=== PATIENT | female | born 1950 | race Caucasian/White ===

== ENCOUNTER 2018-02-23 15:56 | Observation (INO) | payer MEDICARE ==
[~2018-02-23] VITALS: Ht 154.9 cm; Wt 69.2 kg
[2018-02-23 16:29] LABS: BASOPHILS # (AUTO) 0.03 x10^3/uL (0-0.1); BASOPHILS % (AUTO) 1 % (0-1); EOSINOPHILS # (AUTO) 0.12 x10^3/uL (0-0.4); EOSINOPHILS % (AUTO) 2 % (1-7); LYMPHOCYTES # (AUTO) 2.84 x10^3/uL (1-3.4); LYMPHOCYTES % (AUTO) 41 % (22-44); MD NO; MEAN CORPUSCULAR HEMOGLOBIN 27.4 pg (27.0-34.8); MEAN CORPUSCULAR HGB CONC 32.6 g/dL (32.4-35.8); MEAN PLATELET VOLUME 10.6 fL (7.4-10.4); MONOCYTES # (AUTO) 0.33 x10^3/uL (0.2-0.8); MONOCYTES % (AUTO) 5 % (2-9); NEUTROPHILS # (AUTO) 3.58 x10^3/uL (1.8-6.8); NEUTROPHILS % (AUTO) 52 % (42-75); PLATELET COUNT 308 x10^3/uL (130-400); RED CELL DISTRIBUTION WIDTH 15.8 % (9.6-15.2)
[2018-02-23] MEDS ORDERED: ONDANSETRON 2MG/ML, 2ML ONE (16:29)
[2018-02-23] MEDS ORDERED: HYDROmorphone 2 MG/ML, 1ML ONE ×2 (16:29→22:14)
[2018-02-23] MEDS ORDERED: SODIUM CHLORIDE FLUSH 10ML SYR IVF ONE ×2 (16:30)
[2018-02-23] MEDS ORDERED: HYDROmorphone 2 MG/ML, 1ML IVPush PRN (16:30)
[2018-02-23] MEDS ORDERED: SODIUM CHLORIDE 0.9% 1,000ML IVBOLUS ONE (16:30)
[2018-02-23] MEDS ORDERED: MORPHINE SULFATE 4 MG/ML, 1ML IVPush PRN ×2 (16:30→21:00)
[2018-02-23] MEDS ORDERED: ONDANSETRON 2MG/ML, 2ML IVPush ONE ×2 (16:30)
[2018-02-23 16:34] LABS: ALANINE AMINOTRANSFERASE 48 U/L (12-78); ALBUMIN 3.6 g/dL (3.4-5.0); ANION GAP 6 mmol/L (5-15); CALCIUM 8.9 mg/dL (8.5-10.1); CHLORIDE 112 mmol/L (98-107); CREATININE 0.85 mg/dL (0.55-1.02)
[2018-02-23 16:37] LABS: ALKALINE PHOSPHATASE 169 U/L (45-117); BILIRUBIN,TOTAL 0.3 mg/dL (0.2-1.0); TOTAL PROTEIN 8.1 g/dL (6.4-8.2)
[2018-02-23 17:01] LABS: MICROSCOPIC INDICATED
[2018-02-23 17:13] LABS: CULTURE INDICATED? YES
[2018-02-23] MEDS ORDERED: GABA400C PO (17:21)
[2018-02-23] MEDS ORDERED: soma (17:21)
[2018-02-23] MEDS ORDERED: TRAM50TA2 PO (17:21)
[2018-02-23] MEDS ORDERED: CHOL500045 PO (17:21)
[2018-02-23] MEDS ORDERED: VENL150C PO (17:21)
[2018-02-23] MEDS ORDERED: LEVO112T4 PO (17:21)
[2018-02-23] MEDS ORDERED: HYDR200T72 PO (17:21)
[2018-02-23] MEDS ORDERED: BUPIVACAINE/PF-EPI 0.5% 1:200K ONE (19:38)
[2018-02-23] MEDS ORDERED: FENTANYL PF 250 MCG/5ML ONE (20:22)
[2018-02-23] MEDS ORDERED: MIDAZOLAM 1 MG/ML, 2ML ONE ×2 (20:22→22:45)
[2018-02-23] MEDS ORDERED: SUCCINYLCHOLINE 20 MG/ML, 10ML ONE (20:30)
[2018-02-23] MEDS ORDERED: ROCURONIUM 10MG/ML,5ML ONE (20:30)
[2018-02-23] MEDS ORDERED: BUPIVACAINE/PF-EPI 0.5% 1:200K INFIL ONE (20:59)
[2018-02-23] MEDS ORDERED: PROMETHAZINE 12.5 MG SUPP PR PRN (21:00)
[2018-02-23] MEDS ORDERED: PROMETHAZINE 25 MG/ML, 1ML IV PRN (21:00)
[2018-02-23] MEDS ORDERED: ONDANSETRON ODT 8 MG PO PRN (21:00)
[2018-02-23] MEDS ORDERED: OXYcodone 5 MG/5 ML ORAL.SOL UDC PO PRN (21:00)
[2018-02-23] MEDS ORDERED: MIDAZOLAM 1 MG/ML, 2ML IV PRN (21:00)
[2018-02-23] MEDS ORDERED: DIAZEPAM 5 MG/ML, 2ML IVPush PRN (21:00)
[2018-02-23] MEDS ORDERED: ALBUTEROL SULFATE 2.5 MG/3 ML NPPB PRN (21:00)
[2018-02-23] MEDS ORDERED: HALOPERIDOL 5 MG/ML IV PRN (21:00)
[2018-02-23] MEDS ORDERED: LABETALOL 5MG/ML, 20ML IV PRN (21:00)
[2018-02-23] MEDS ORDERED: hydrALAzine 20 MG/ML, 1ML IV PRN (21:00)
[2018-02-23] MEDS ORDERED: ACETAMINOPHEN 325 MG TABLET PO PRN (21:00)
[2018-02-23] MEDS ORDERED: EPHEDRINE 50 MG/ML, 1ML IVPush PRN (21:00)
[2018-02-23] MEDS ORDERED: ONDANSETRON 2MG/ML, 2ML IV PRN (21:00)
[2018-02-23] MEDS ORDERED: MEPERIDINE/PF 25MG/0.5ML IVPush PRN (21:00)
[2018-02-23] MEDS ORDERED: GLYCOPYRROLATE 0.4 MG/2 ML, 2ML ONE (21:34)
[2018-02-23] MEDS ORDERED: KETOROLAC 30 MG/1 ML ONE (21:34)
[2018-02-23] MEDS ORDERED: NEOSTIGMINE 1 MG/ML, 10ML ONE (21:34)
[2018-02-23] MEDS ORDERED: FENTANYL PF 100 MCG/2ML ONE (22:05)
[2018-02-23] MEDS: FENTANYL PF 100 MCG/2ML IV PRN ×2 (22:05→22:40)
[2018-02-23] MEDS ORDERED: OXYcodone 5 MG/5 ML ORAL.SOL UDC ONE (22:05)
[2018-02-23] MEDS: HYDROmorphone 2 MG/ML, 1ML IVPush PRN ×2 (22:17→22:28)
[2018-02-23] MEDS ORDERED: ONDANSETRON 2MG/ML, 2ML IVPush PRN (22:30)
[2018-02-23] MEDS ORDERED: PROMETHAZINE 25 MG/ML, 1ML IM PRN (22:30)
[2018-02-23] MEDS ORDERED: morphine SULFATE 10 MG/ML, 1ML IVPush PRN (22:30)
[2018-02-24] MEDS ORDERED: ONDANSETRON 2MG/ML, 2ML ONE
[2018-02-24] MEDS ORDERED: PROPOFOL 10 MG/ML, 20ML ONE
[2018-02-24] MEDS ORDERED: DEXAMETHASONE 4 MG/ML, 1ML ONE
[2018-02-24] MEDS ORDERED: EPHEDRINE 50 MG/ML, 1ML ONE
[2018-02-24] MEDS ORDERED: CEFOTETAN PMX 1GM/50ML 50 ML IVPB SCH
[2018-02-24] MEDS ORDERED: CEFOTETAN 1 GM ONE
[2018-02-24] MEDS: OXYcodone/APAP 7.5/325MG TABLET PO PRN ×2 (01:20→05:16)
[2018-02-24] MEDS: D5%-0.45NACL+KCL 20MEQ 1,000 ML IV SCH ×2 (02:22→11:52)
[2018-02-24 04:09] VITALS: BP 100/60
[2018-02-24 05:11] LABS: BASOPHILS # (AUTO) 0.01 x10^3/uL (0-0.1); BASOPHILS % (AUTO) 0 % (0-1); EOSINOPHILS % (AUTO) 0 % (1-7); LYMPHOCYTES # (AUTO) 0.79 x10^3/uL (1-3.4); LYMPHOCYTES % (AUTO) 7 % (22-44); MD NO; MEAN CORPUSCULAR HEMOGLOBIN 27.5 pg (27.0-34.8); MEAN CORPUSCULAR HGB CONC 33.1 g/dL (32.4-35.8); MEAN CORPUSCULAR VOLUME 83.3 fL (80-100); MEAN PLATELET VOLUME 10.8 fL (7.4-10.4); MONOCYTES # (AUTO) 0.15 x10^3/uL (0.2-0.8); MONOCYTES % (AUTO) 1 % (2-9); NEUTROPHILS # (AUTO) 10.52 x10^3/uL (1.8-6.8); NEUTROPHILS % (AUTO) 92 % (42-75); PLATELET COUNT 230 x10^3/uL (130-400); RED BLOOD COUNT 4.12 x10^6/uL (3.82-5.3); RED CELL DISTRIBUTION WIDTH 15.8 % (9.6-15.2)
[2018-02-24 07:06] VITALS: BP 99/61
[2018-02-24 12:47] VITALS: BP 96/58
[2018-02-24 13:32] VITALS: BP 128/71
== END 2018-02-24 16:41 | disposition home or self-care (01) ==
LOC: ED 17:15 → 4NOR 23:30 → ED 02-24 → DCLOUNGE 02-24 16:25
PROVIDERS: ADMIT Surgery; ATTEND Surgery
DX: K80.10 Calculus of gallbladder with chronic cholecystitis without obstruction (principal); E03.9 Hypothyroidism, unspecified; G89.29 Other chronic pain; K66.0 Peritoneal adhesions (postprocedural) (postinfection); K82.8 Other specified diseases of gallbladder
CPT/HCPCS: 36415; 47562; 76700; 80053; 81001; 83605; 83690; 85025; 87086; 88304; 96365; 96372; 96375; 96376; 99284; G0378; J0330; J1100; J1170; J1885; J2250; J2405; J2550; J2704; J2710; J3010; J3480; J3490; J7030

== ENCOUNTER 2018-03-05 11:31 | Inpatient (IN) | payer MEDICARE ==
[~2018-03-05] VITALS: Ht 154.9 cm; Wt 66.0 kg
[~2018-03-05 11:31] MED LIST: CHOL500045 PO; GABA400C PO; HYDR200T72 PO; LEVO112T4 PO; TRAM50TA2 PO; VENL150C PO; soma
[2018-03-05 12:09] LABS: BASOPHILS # (AUTO) 0.06 x10^3/uL (0-0.1); BASOPHILS % (AUTO) 1 % (0-1); EOSINOPHILS # (AUTO) 0.05 x10^3/uL (0-0.4); EOSINOPHILS % (AUTO) 0 % (1-7); LYMPHOCYTES # (AUTO) 1.75 x10^3/uL (1-3.4); LYMPHOCYTES % (AUTO) 15 % (22-44); MD NO; MEAN CORPUSCULAR HEMOGLOBIN 27.7 pg (27.0-34.8); MEAN CORPUSCULAR HGB CONC 33.9 g/dL (32.4-35.8); MEAN CORPUSCULAR VOLUME 81.9 fL (80-100); MEAN PLATELET VOLUME 9.4 fL (7.4-10.4); MONOCYTES # (AUTO) 0.39 x10^3/uL (0.2-0.8); MONOCYTES % (AUTO) 3 % (2-9); NEUTROPHILS # (AUTO) 9.69 x10^3/uL (1.8-6.8); NEUTROPHILS % (AUTO) 81 % (42-75); PLATELET COUNT 465 x10^3/uL (130-400); RED BLOOD COUNT 4.44 x10^6/uL (3.82-5.3); RED CELL DISTRIBUTION WIDTH 15.8 % (9.6-15.2)
[2018-03-05 12:20] LABS: ALANINE AMINOTRANSFERASE 23 U/L (12-78); ALBUMIN 2.6 g/dL (3.4-5.0); ANION GAP 10 mmol/L (5-15); CALCIUM 8.5 mg/dL (8.5-10.1); CHLORIDE 103 mmol/L (98-107); CREATININE 0.98 mg/dL (0.55-1.02)
[2018-03-05 12:22] LABS: ALKALINE PHOSPHATASE 280 U/L (45-117); BILIRUBIN,TOTAL 1.4 mg/dL (0.2-1.0); TOTAL PROTEIN 7.8 g/dL (6.4-8.2)
[2018-03-05] MEDS ORDERED: LORazepam 2 MG/ML, 1ML ONE (12:56)
[2018-03-05] MEDS ORDERED: LORazepam 2 MG/ML, 1ML IVPush ONE (13:00)
[2018-03-05] MEDS ORDERED: OMNIPAQUE 350 MG/ML, 100ML BOTTLE ONE (14:36)
[2018-03-05] MEDS ORDERED: LIDOCAINE-MPF 1%, 5ML ONE ×3 (15:12→16:08)
[2018-03-05] MEDS ORDERED: FENTANYL PF 100 MCG/2ML ONE (15:15)
[2018-03-05] MEDS ORDERED: NALOXONE 1 MG/ML, 2ML ONE (15:15)
[2018-03-05] MEDS ORDERED: DIPHENHYDRAMINE 25 MG CAPSULE PO PRN (15:30)
[2018-03-05] MEDS ORDERED: PHARMACY MAY ADJ FOR RENAL FX MC SCH (15:30)
[2018-03-05] MEDS ORDERED: morphine SULFATE 10 MG/ML, 1ML IVPush ONE (15:30)
[2018-03-05] MEDS ORDERED: ACETAMINOPHEN 325 MG TABLET PO PRN (15:30)
[2018-03-05] MEDS ORDERED: DOCUSATE 100 MG CAPSULE PO PRN (15:30)
[2018-03-05] MEDS ORDERED: MORPHINE SULFATE 4 MG/ML, 1ML ONE (15:31)
[2018-03-05] MEDS: MORPHINE SULFATE 4 MG/ML, 1ML IV PRN (16:34)
[2018-03-05 17:05] VITALS: BP 115/76
[2018-03-05] MEDS: SODIUM CHLORIDE 0.9% 1,000 ML IV SCH (17:27)
[2018-03-05] MEDS: CEFEPIME 2 GM in DEXTROSE 5% 100 ML IV SCH (17:52)
[2018-03-05 19:06] VITALS: BP 120/72
[2018-03-05] MEDS: METRONIDAZOLE PMX 500MG/100ML 100 ML IV SCH (19:55)
[2018-03-05] MEDS: GABAPENTIN 400 MG CAPSULE PO SCH (23:18)
[2018-03-06] MEDS: MORPHINE SULFATE 4 MG/ML, 1ML IV PRN ×3 (00:26→12:41)
[2018-03-06 00:31] VITALS: BP 106/58
[2018-03-06] MEDS: CEFEPIME 2 GM in DEXTROSE 5% 100 ML IV SCH ×3 (02:07→18:33)
[2018-03-06] MEDS: METRONIDAZOLE PMX 500MG/100ML 100 ML IV SCH ×4 (02:44→23:48)
[2018-03-06] MEDS: SODIUM CHLORIDE 0.9% 1,000 ML IV SCH ×3 (04:40→17:33)
[2018-03-06] MEDS: LEVOTHYROXINE 112 MCG TABLET PO SCH (05:23)
[2018-03-06 05:55] LABS: BASOPHILS # (AUTO) 0.04 x10^3/uL (0-0.1); BASOPHILS % (AUTO) 0 % (0-1); EOSINOPHILS # (AUTO) 0.23 x10^3/uL (0-0.4); EOSINOPHILS % (AUTO) 3 % (1-7); LYMPHOCYTES % (AUTO) 22 % (22-44); MD NO; MEAN CORPUSCULAR HEMOGLOBIN 27.7 pg (27.0-34.8); MEAN CORPUSCULAR HGB CONC 33.6 g/dL (32.4-35.8); MEAN CORPUSCULAR VOLUME 82.6 fL (80-100); MEAN PLATELET VOLUME 9.4 fL (7.4-10.4); MONOCYTES # (AUTO) 0.54 x10^3/uL (0.2-0.8); MONOCYTES % (AUTO) 7 % (2-9); NEUTROPHILS # (AUTO) 5.53 x10^3/uL (1.8-6.8); NEUTROPHILS % (AUTO) 68 % (42-75); PLATELET COUNT 400 x10^3/uL (130-400); RED BLOOD COUNT 3.73 x10^6/uL (3.82-5.3); RED CELL DISTRIBUTION WIDTH 15.8 % (9.6-15.2)
[2018-03-06 06:07] LABS: ALANINE AMINOTRANSFERASE 18 U/L (12-78); ALBUMIN 1.9 g/dL (3.4-5.0); ANION GAP 10 mmol/L (5-15); CALCIUM 8.1 mg/dL (8.5-10.1); CHLORIDE 107 mmol/L (98-107); CREATININE 0.77 mg/dL (0.55-1.02)
[2018-03-06 06:09] LABS: ALKALINE PHOSPHATASE 226 U/L (45-117)
[2018-03-06] MEDS: VENLAFAXINE 75MG TABLET PO SCH (09:00)
[2018-03-06] MEDS: GABAPENTIN 400 MG CAPSULE PO SCH ×2 (09:00→21:29)
[2018-03-06] MEDS: CHOLECALCIFEROL 5,000u TAB PO SCH (09:00)
[2018-03-06 09:01] VITALS: BP 118/70
[2018-03-06] MEDS ORDERED: FENTANYL PF 100 MCG/2ML ONE ×2 (14:14→14:32)
[2018-03-06] MEDS ORDERED: LIDOCAINE 4%, 4 ML SYR/CANN TP ONE (14:16)
[2018-03-06] MEDS ORDERED: PHENYLEPHRINE 10 MG/ML ONE (14:16)
[2018-03-06] MEDS ORDERED: DEXAMETHASONE 4 MG/ML, 1ML ONE (15:35)
[2018-03-06] MEDS ORDERED: CEFAZOLIN 1,000 MG ONE (15:35)
[2018-03-06] MEDS ORDERED: ROCURONIUM 10MG/ML,5ML ONE (15:35)
[2018-03-06] MEDS ORDERED: ONDANSETRON 2MG/ML, 2ML ONE (15:35)
[2018-03-06] MEDS ORDERED: SUCCINYLCHOLINE 20 MG/ML, 10ML ONE (15:35)
[2018-03-06] MEDS ORDERED: GLYCOPYRROLATE 0.2MG/1ML, 5ML ONE (15:35)
[2018-03-06] MEDS ORDERED: NEOSTIGMINE 1 MG/ML, 10ML ONE (15:35)
[2018-03-06] MEDS ORDERED: PROPOFOL 10 MG/ML, 20ML ONE (15:35)
[2018-03-06] MEDS ORDERED: INDOMETHACIN 50 MG SUPP.RECT ONE (15:47)
[2018-03-06] MEDS ORDERED: OXYcodone 5 MG/5 ML ORAL.SOL UDC PO PRN (16:00)
[2018-03-06] MEDS ORDERED: ONDANSETRON ODT 8 MG PO PRN (16:00)
[2018-03-06] MEDS ORDERED: ACETAMINOPHEN 325 MG TABLET PO PRN (16:00)
[2018-03-06] MEDS ORDERED: MEPERIDINE/PF 25MG/0.5ML IVPush PRN (16:00)
[2018-03-06] MEDS ORDERED: DIAZEPAM 5 MG/ML, 2ML IVPush PRN (16:00)
[2018-03-06] MEDS ORDERED: PROMETHAZINE 25 MG/ML, 1ML IV PRN (16:00)
[2018-03-06] MEDS ORDERED: ONDANSETRON 2MG/ML, 2ML IV PRN (16:00)
[2018-03-06] MEDS ORDERED: HYDROmorphone 2 MG/ML, 1ML IVPush PRN (16:00)
[2018-03-06] MEDS ORDERED: INDOMETHACIN 50 MG SUPP.RECT PR ONE (16:00)
[2018-03-06] MEDS ORDERED: FENTANYL PF 100 MCG/2ML IV PRN (16:00)
[2018-03-06] MEDS ORDERED: LACTATED RINGERS 1,000 ML IVBOLUS ONE (16:30)
[2018-03-06] MEDS: LACTATED RINGERS 1,000 ML IV SCH (17:50)
[2018-03-06 19:23] VITALS: BP 112/51
[2018-03-06] MEDS: ONDANSETRON 2MG/ML, 2ML IV PRN (22:32)
[2018-03-07 00:03] VITALS: BP 102/64
[2018-03-07] MEDS: SODIUM CHLORIDE 0.9% 1,000 ML IV SCH ×4 (00:20→20:20)
[2018-03-07] MEDS: CEFEPIME 2 GM in DEXTROSE 5% 100 ML IV SCH ×3 (02:45→17:55)
[2018-03-07 04:12] VITALS: BP 108/65
[2018-03-07] MEDS: ONDANSETRON 2MG/ML, 2ML IV PRN ×3 (04:45→16:55)
[2018-03-07] MEDS: LEVOTHYROXINE 112 MCG TABLET PO SCH (04:45)
[2018-03-07] MEDS: METRONIDAZOLE PMX 500MG/100ML 100 ML IV SCH ×4 (04:51→23:46)
[2018-03-07] MEDS: LACTATED RINGERS 1,000 ML IV SCH ×2 (08:00→21:09)
[2018-03-07] MEDS: CHOLECALCIFEROL 5,000u TAB PO SCH (08:12)
[2018-03-07] MEDS: GABAPENTIN 400 MG CAPSULE PO SCH ×2 (08:12→22:44)
[2018-03-07] MEDS: VENLAFAXINE 75MG TABLET PO SCH (08:12)
[2018-03-07 09:01] VITALS: BP 112/64
[2018-03-07] MEDS: MORPHINE SULFATE 4 MG/ML, 1ML IV PRN ×2 (13:25→22:44)
[2018-03-07 14:22] VITALS: BP 106/62
[2018-03-07 19:12] VITALS: BP 103/58
[2018-03-08] MEDS: ONDANSETRON 2MG/ML, 2ML IV PRN ×2 (00:02→22:22)
[2018-03-08 00:45] VITALS: BP 109/66
[2018-03-08] MEDS: SODIUM CHLORIDE 0.9% 1,000 ML IV SCH ×4 (03:00→23:00)
[2018-03-08] MEDS: CEFEPIME 2 GM in DEXTROSE 5% 100 ML IV SCH (04:20)
[2018-03-08 05:21] LABS: BASOPHILS # (AUTO) 0.04 x10^3/uL (0-0.1); BASOPHILS % (AUTO) 1 % (0-1); EOSINOPHILS # (AUTO) 0.34 x10^3/uL (0-0.4); EOSINOPHILS % (AUTO) 4 % (1-7); LYMPHOCYTES # (AUTO) 1.65 x10^3/uL (1-3.4); LYMPHOCYTES % (AUTO) 20 % (22-44); MD NO; MEAN CORPUSCULAR HEMOGLOBIN 26.9 pg (27.0-34.8); MEAN CORPUSCULAR HGB CONC 32.3 g/dL (32.4-35.8); MEAN CORPUSCULAR VOLUME 83.4 fL (80-100); MEAN PLATELET VOLUME 9.2 fL (7.4-10.4); MONOCYTES # (AUTO) 0.37 x10^3/uL (0.2-0.8); MONOCYTES % (AUTO) 5 % (2-9); NEUTROPHILS # (AUTO) 5.81 x10^3/uL (1.8-6.8); NEUTROPHILS % (AUTO) 71 % (42-75); PLATELET COUNT 471 x10^3/uL (130-400); RED BLOOD COUNT 3.87 x10^6/uL (3.82-5.3); RED CELL DISTRIBUTION WIDTH 16.3 % (9.6-15.2)
[2018-03-08 05:27] LABS: ALBUMIN 1.8 g/dL (3.4-5.0); BILIRUBIN, DIRECT 0.5 mg/dL (0.1-0.2)
[2018-03-08 05:30] LABS: BILIRUBIN,INDIRECT 0.4 mg/dL (0.0-2.0); BILIRUBIN,TOTAL 0.9 mg/dL (0.2-1.0); TOTAL PROTEIN 5.6 g/dL (6.4-8.2)
[2018-03-08] MEDS ORDERED: LEVOTHYROXINE 25 MCG TABLET ONE (06:00)
[2018-03-08] MEDS ORDERED: LEVOTHYROXINE 100 MCG TABLET ONE (06:00)
[2018-03-08] MEDS: LEVOTHYROXINE 112 MCG TABLET PO SCH (06:08)
[2018-03-08] MEDS: METRONIDAZOLE PMX 500MG/100ML 100 ML IV SCH (06:08)
[2018-03-08 06:56] VITALS: BP 126/70
[2018-03-08] MEDS: HYDROcodone/APAP 5/325 TABLET PO PRN (10:35)
[2018-03-08] MEDS: AMOXICILLIN/CLAV 875-125MG TABLET PO SCH ×2 (10:35→21:33)
[2018-03-08] MEDS: GABAPENTIN 400 MG CAPSULE PO SCH ×2 (10:35→21:33)
[2018-03-08] MEDS: LACTATED RINGERS 1,000 ML IV SCH ×2 (10:35→23:00)
[2018-03-08] MEDS: CHOLECALCIFEROL 5,000u TAB PO SCH (10:35)
[2018-03-08] MEDS: VENLAFAXINE 75MG TABLET PO SCH (10:35)
[2018-03-08 13:13] VITALS: BP 102/67
[2018-03-08 19:00] VITALS: BP 97/59
[2018-03-09 03:16] VITALS: BP 118/76
[2018-03-09] MEDS: SODIUM CHLORIDE 0.9% 1,000 ML IV SCH (03:24)
[2018-03-09] MEDS: LEVOTHYROXINE 112 MCG TABLET PO SCH (05:13)
[2018-03-09 07:25] VITALS: BP 121/72
[2018-03-09] MEDS: HYDROcodone/APAP 5/325 TABLET PO PRN (08:16)
[2018-03-09] MEDS: AMOXICILLIN/CLAV 875-125MG TABLET PO SCH ×2 (08:16→21:08)
[2018-03-09] MEDS: VENLAFAXINE 75MG TABLET PO SCH (08:16)
[2018-03-09] MEDS: GABAPENTIN 400 MG CAPSULE PO SCH ×2 (08:17→21:08)
[2018-03-09] MEDS: CHOLECALCIFEROL 5,000u TAB PO SCH (08:17)
[2018-03-09] MEDS: MORPHINE SULFATE 4 MG/ML, 1ML IV PRN (11:57)
[2018-03-09] MEDS: D5%-0.9% NACL+KCL 20MEQ 1,000 ML IV SCH (12:36)
[2018-03-09] MEDS ORDERED: BISACODYL 10 MG SUPP PR PRN (13:00)
[2018-03-09 13:04] VITALS: BP 109/58
[2018-03-09 19:16] VITALS: BP 95/58
[2018-03-10 01:41] VITALS: BP 109/69
[2018-03-10] MEDS: D5%-0.9% NACL+KCL 20MEQ 1,000 ML IV SCH (02:36)
[2018-03-10 05:40] LABS: BASOPHILS # (AUTO) 0.01 x10^3/uL (0-0.1); BASOPHILS % (AUTO) 0 % (0-1); EOSINOPHILS # (AUTO) 0.25 x10^3/uL (0-0.4); EOSINOPHILS % (AUTO) 3 % (1-7); LYMPHOCYTES # (AUTO) 2.53 x10^3/uL (1-3.4); LYMPHOCYTES % (AUTO) 32 % (22-44); MD NO; MEAN CORPUSCULAR HEMOGLOBIN 27.3 pg (27.0-34.8); MEAN CORPUSCULAR HGB CONC 32.3 g/dL (32.4-35.8); MEAN CORPUSCULAR VOLUME 84.5 fL (80-100); MEAN PLATELET VOLUME 9.2 fL (7.4-10.4); MONOCYTES # (AUTO) 0.52 x10^3/uL (0.2-0.8); MONOCYTES % (AUTO) 7 % (2-9); NEUTROPHILS # (AUTO) 4.62 x10^3/uL (1.8-6.8); NEUTROPHILS % (AUTO) 58 % (42-75); PLATELET COUNT 486 x10^3/uL (130-400); RED CELL DISTRIBUTION WIDTH 16.5 % (9.6-15.2)
[2018-03-10 05:49] LABS: CHLORIDE 112 mmol/L (98-107)
[2018-03-10] MEDS: LEVOTHYROXINE 112 MCG TABLET PO SCH (05:59)
[2018-03-10 06:00] LABS: ALANINE AMINOTRANSFERASE 18 U/L (12-78); ALBUMIN 1.9 g/dL (3.4-5.0); ALKALINE PHOSPHATASE 186 U/L (45-117); ANION GAP 7 mmol/L (5-15); BILIRUBIN,TOTAL 0.7 mg/dL (0.2-1.0); CALCIUM 7.9 mg/dL (8.5-10.1); CREATININE 0.55 mg/dL (0.55-1.02); TOTAL PROTEIN 5.7 g/dL (6.4-8.2)
[2018-03-10 07:13] VITALS: BP 115/68
[2018-03-10] MEDS: GABAPENTIN 400 MG CAPSULE PO SCH (07:33)
[2018-03-10] MEDS: VENLAFAXINE 75MG TABLET PO SCH (07:33)
[2018-03-10] MEDS: AMOXICILLIN/CLAV 875-125MG TABLET PO SCH (07:33)
[2018-03-10] MEDS: CHOLECALCIFEROL 5,000u TAB PO SCH (07:34)
[2018-03-10] MEDS ORDERED: AMOX1TAB64 PO (11:13)
[2018-03-10] MEDS ORDERED: ONDA4TAB12 PO (11:16)
[2018-03-10 12:29] VITALS: BP 137/85
== END 2018-03-10 13:30 | disposition home or self-care (01) | DRG 393 ==
LOC: ED 12:07 → EDIP 15:04 → 4NOR 16:52 → DCLOUNGE 03-10 13:00
PROVIDERS: ADMIT Surgery; ATTEND Surgery
PROC: 0W9G30Z Drainage of Peritoneal Cavity with Drainage Device, Percutaneous Approach (ICD-10-PCS; 2018-03-05)
PROC: 0WJJ3ZZ Inspection of Pelvic Cavity, Percutaneous Approach (ICD-10-PCS; 2018-03-05)
PROC: 0F7 Hepatobiliary System and Pancreas, Dilation (ICD-10-PCS; 2018-03-06)
PROC: 0FC98ZZ Extirpation of Matter from Common Bile Duct, Via Natural or Artificial Opening Endoscopic (ICD-10-PCS; 2018-03-06)
PROC: 0F7 Hepatobiliary System and Pancreas, Dilation (ICD-10-PCS; principal; 2018-03-06 14:00)
DX: K91.89 Other postprocedural complications and disorders of digestive system (principal); K65.3 Choleperitonitis; K80.51 Calculus of bile duct without cholangitis or cholecystitis with obstruction; E03.9 Hypothyroidism, unspecified; Y83.8 Other surgical procedures as the cause of abnormal reaction of the patient, or of later complication, without mention of misadventure at the time of the procedure; E88.09 Other disorders of plasma-protein metabolism, not elsewhere classified; F41.1 Generalized anxiety disorder; G89.29 Other chronic pain; Z90.49 Acquired absence of other specified parts of digestive tract; M32.9 Systemic lupus erythematosus, unspecified
CPT/HCPCS: 36415; 49405; 49406; 74177; 74330; 80053; 80076; 85025; 96374; 96375; 99285; C1894; G0378; J0690; J1100; J2405; J2704; J2710; J3010; J3490; Q9967; C1729; C1769; C2625; J0330; J2060; J2270; J2310; J2370; J3480; J7030; J7120; Q0163

== ENCOUNTER 2018-06-18 07:32 | Day surgery (SDC) | payer MEDICARE, OTHER ==
[~2018-06-18] VITALS: Ht 154.9 cm; Wt 57.2 kg
[~2018-06-18 07:32] MED LIST changes: +AMOX1TAB64 PO; +ONDA4TAB12 PO; +TOTAL RESTORE PO; +[UNRECOGNIZED DRUG - OTHER] PO; +[UNRECOGNIZED DRUG - OTHER] PO; +instaflex PO
[2018-06-18] MEDS ORDERED: LACTATED RINGERS 1,000 ML IV SCH (08:13)
[2018-06-18 08:29] VITALS: BP 141/83
[2018-06-18] MEDS ORDERED: SUCCINYLCHOLINE 20 MG/ML, 10ML ONE (10:08)
[2018-06-18] MEDS ORDERED: PROPOFOL 10 MG/ML, 20ML ONE (10:08)
[2018-06-18] MEDS ORDERED: OXYcodone 5 MG/5 ML ORAL.SOL UDC PO PRN (10:30)
[2018-06-18] MEDS ORDERED: MEPERIDINE/PF 25MG/0.5ML IVPush PRN (10:30)
[2018-06-18] MEDS ORDERED: KETOROLAC 30 MG/1 ML IV PRN (10:30)
[2018-06-18] MEDS ORDERED: HYDROmorphone 1 MG/ML, 1ML INJ IV PRN (10:30)
[2018-06-18] MEDS ORDERED: ONDANSETRON 2MG/ML, 2ML IVPush PRN (10:30)
[2018-06-18] MEDS ORDERED: LABETALOL 5 MG/ML SYRINGE IV PRN (10:30)
[2018-06-18] MEDS ORDERED: hydrALAzine 20 MG/ML, 1ML IV PRN (10:30)
[2018-06-18] MEDS ORDERED: ALBUTEROL SULFATE 2.5 MG/3 ML NPPB PRN (10:30)
[2018-06-18] MEDS ORDERED: METOCLOPRAMIDE 5 MG/ML, 2ML IV PRN (10:30)
[2018-06-18] MEDS ORDERED: FENTANYL PF 100 MCG/2ML IV PRN (10:30)
[2018-06-18] MEDS ORDERED: PROMETHAZINE 25 MG/ML, 1ML IV PRN (10:30)
[2018-06-18] MEDS ORDERED: OMNIPAQUE 350 MG/ML, 50 ML BOTTLE ONE (10:46)
== END 2018-06-18 13:00 | disposition home or self-care (01) ==
LOC: OUT 07:32
PROVIDERS: ATTEND Internal Medicine Gastroenterology
DX: K80.50 Calculus of bile duct without cholangitis or cholecystitis without obstruction (principal); K91.89 Other postprocedural complications and disorders of digestive system; K21.9 Gastro-esophageal reflux disease without esophagitis; G43.909 Migraine, unspecified, not intractable, without status migrainosus; E89.0 Postprocedural hypothyroidism; Z86.010 Personal history of colon polyps; Z90.710 Acquired absence of both cervix and uterus; Z88.1 Allergy status to other antibiotic agents
CPT/HCPCS: 43264; 43276; 74328; 93005; C1769; J0330; J2704; Q9967